=== PATIENT | male | born 1990 | race Caucasian/White ===

== ENCOUNTER 2025-02-27 09:54 | Outpatient (CLI) | payer BC, SELFPAY ==
[2025-02-27 14:31] LABS: Coronavirus 19, PCR Not Detected (NotDetected); Influenza A, PCR Not Detected (NotDetected); Influenza B, PCR Not Detected (NotDetected)
--- OUTSIDE RECORDS SUMMARY | 2025-02-28 14:19 | XMS_ITS | Data Portability ---
Author Organization [facility] ADMIN Address [address] [place] [id number] Assessment No assessment recorded. Plan of Treatment Reminders Order Date Submit Date Provider Last Modified By Organization Details Last Modified Time Details Appointments None recorde d. Lab influen za virus A + B + SARS-Co V-2 (COVID1 9) Ag panel, rapid IA, upper respira tory specime n 2022 023 [facility], [address] [place] [address] [address], [place], [address], 3 17:07:49 rapid strep group A, throat 2022 023 [facility], [address] [place] [address] [address], [place], [address], 3 17:13:08 semen analysi s (post vasecto my) 2022 023 [facility] Not available 3 10:13:52 urinaly sis, dipstic k 2022 023 [email or web address] [facility], [address], [address], [place], [address], 3 09:48:[address] referra l 2021 022 [email or web address] [facility], [address], [address], [place], [address], 3 19:06:10 Procedures None recorde d. Surgeries None recorde d. Imaging US, scrotum 2022 023 [facility] (Centralized Scheduling), [address], [place], [address], 3 08:56:24 Medication Orders prometh azine-D M 6.25 mg-15 mg/5 mL oral syrup 2022 023 [facility], [address], [place], [address], 3 16:27:36 prednis one 20 mg tablet 2022 023 [facility], [address], [place], [address], 3 16:27:37 Chantix Startin g Month Box 0.5 mg (11)-1 mg (42) tablets in dose pack 2021 023 [facility], [address], [place], [address], 3 16:01:00 Mobic 15 mg tablet [address] [facility] [address] [facility], [address], [place], [address], 3 16:00:45 Stratte ra 40 mg capsule [address] [facility], [address], [place], [address], 16:00:49 Patient TargetsNo targets recorded. Patient InstructionsNo instructions recorded. Reason for Referral Urologist Referral for Orchi tis and epididymitis Referring Physician: Moises Treviño, Family Medicine, Encounter Date: 04/08/2022 Results Created Date Observation Date Name Description Value Unit Range Abnormal Flag Note LastModifiedBy Organization Detail LastModifiedTime 06/18/1906/17/2022 urina lysis , dipst ick Leukocytes (reference range) negati ve Not Available [facility] [address] [place] [address], [place], [address], 06/17/2022 09:11:55 06/18/1906/17/2022 urina lysis , dipst ick Nitrite (reference range:) negati ve Not Available [address], [address], 06/17/2022 09:11:55 06/18/1906/17/2022 urina lysis , dipst ick Urobilinogen (reference range) 0.2 Not Available [facility] [address], [place], [address], 06/17/2022 09:11:55 06/18/1906/17/2022 urina lysis , dipst ick Protein (reference range) negati ve Not Available [address], [address], 06/17/2022 09:11:55 06/18/19 23 06/17/2022 urina lysis , dipst ick pH (reference range 5-8.5) 5.0 Not Available [facility] [address], [place], [address], 06/17/2022 09:11:55 06/18/19 23 06/17/2022 urina lysis , dipst ick Blood (reference range:) negati ve Not Available [facility] [address] [place] [address] [address], [place], [address], 06/17/2022 09:11:55 06/18/19 23 06/17/2022 urina lysis , dipst ick Specific Aiken (reference range) 1.015 Not Available [facility] [address] [place] [address] [address], [place], [address], 06/17/2022 09:11:55 06/18/19 23 06/17/2022 urina lysis , dipst ick Ketone (reference range) negati ve Not Available [address], [place], [address], 06/17/2022 09:11:55 06/18/1906/17/2022 urina lysis , dipst ick Bilirubin (reference range) negati ve Not Available [address], [place], [address], 06/17/2022 09:11:55 06/18/1906/17/2022 urina lysis , dipst ick Glucose (reference range) negati ve Not Available [address], [place], [address], 06/17/2022 09:11:55 06/18/1906/17/2022 urina lysis , dipst ick Color (reference range: yellow-brown ) Yellow Not Available [facility] [address] [place] [address] [address], [place], [address], 06/17/2022 09:11:55 07/28/19 23 07/27/2022 SEMEN YESSI SIS POST VAS semen analysis post vas PRES NONMOT ILE Not Available [facility] ([facility]) [address] [facility], [place], [address], 07/27/2022 10:13:52 12/16/19 23 12/15/2022 influ betty virus A + B + SARS- CoV-2 (COVI D19) Ag panel , rapid IA, upper respi rator y speci men FLU A negati ve Not Available [facility] - [address], [place], [address], 12/15/2022 16:09:13 12/16/19 23 12/15/2022 influ betty virus A + B + SARS- CoV-2 (COVI D19) Ag panel , rapid IA, upper respi rator y speci men FLU B negati ve Not Available [facility] - [address], [place], [address], 12/15/2022 16:09:13 12/16/19 23 12/15/2022 influ betty virus A + B + SARS- CoV-2 (COVI D19) Ag panel , rapid IA, upper respi rator y speci men SARS COV + SARS OV 2 positi ve Not Available [facility] - [address], [place], [address], 12/15/2022 16:09:13 12/16/19 23 12/15/2022 rapid strep group A, throa t Strep negati ve Not Available [facility] - [address], [place], [address], 12/15/2022 16:09:14 07/28/19 23 07/27/2022 scrot um testi cles [facility] [address] [place] [address] Phone: Fax: Name: Devin Xavier Exam Date: 023 : [birth year] Age 32 Gender : M Access ion: [id number] Physic phil: GLADYS BOYER Facili ty: [facility] Facili ty HSV: Outpat ient Exam: SCROTU M TESTIC LES US SCROTA L ULTRAS OUND HISTOR Y: Bilate ral testic ular pain since . PROCED URE: Sonogr aphic images of the testic les were perfor med. FINDIN GS: Testes have a homoge neous vangie ecture . No masses are seen. Normal flow is demons trated by Dopple r exam. There are small bilate ral hydroc eles. There is a 1.2 cm right epidid ymal cyst. CONCLU SIERRA: 1. No intrat esticu lar mass or eviden ce of torsio n. 2. Right epidid ymal cyst and small bilate ral hydroc eles The films were review ed, interp reted, and dictat ed by Dr. Jaime Kearns Transc ribed by Joanie Solares se, PA-C Dictat ed By: JAIME KEARNS Transc ribed By: Jaime Kearns Transc ribed On: 023 9:46 AM Electr onical ly signed by: JAIME KEARNS 023 [facility] Legall y authen ticate d by POPE JAIME Garibay 07-27 09:46: 15 CC'ed Logic: Orderi ng Provid er: ROSALIND Keith Attend ing Provid er: ROSALIND Keith Admitt ing Provid er: ROSALIND Keith [email or web address] [facility] [address] [facility] [facility], [place], [address], 07/27/2022 10:13:53 Result Notes None recorded. Problems Name Problem SNOMED Code Status Onset Date Resolution Date Notes Provider Name and Address Organization Details Recorded Time Epididymitis 54849629 Active 2022 HANS Lau [facility] [place] 3 10:59:54 Orchitis 659447038 Active 2022 HANS Lau [facility] 3 11:00:03 Problem Notes None recorded. Procedures Surgical History Date Name Laterality Status Provider Name and Address Organization Details Recorded Time vasectomy completed Diane MAXWELL - LP [facility] [place] 06/17/2022 08:53:54 Imaging Results None recorded. Procedure Notes None recorded. Medical Equipment None Reported. Allergies No known drug allergies Medications Name Sig Start Date Stop Date Status Note LastModified by Organization Details LastModified Time promethazin e-DM 6.25 mg-15 mg/5 mL oral syrup TAKE 5 ML BY MOUTH EVERY 4 HOURS NEEDED active Not Available Not Available No t Available meloxicam 15 mg tablet Take 1 tablet every day by oral route. 12/15 completed Not Available Not Available Not Available prednisone 20 mg tablet TAKE 3 TABS BY MOUTH DAILY FOR 3 DAYS, THEN TAKE 2 TABS DAILY FOR 3 DAYS, THEN TAKE 1 TAB DAILY FOR 3 DAYS active Not Available Not Available No t Available doxycycline monohydrate 100 mg capsule TAKE 1 CAPSULE BY MOUTH TWICE DAILY FOR 14 DAYS active Not Available Not Available No t Available atomoxetine 40 mg capsule Take 1 capsule every day by oral route. 12/15 completed Not Available Not Available Not Available Chantix Starting Month Box 0.5 mg (11)-1 mg (42) tablets in dose pack Take 1 startr pk by oral route as directed. 12/15 completed Not Available Not Available Not Available BinaxNOW COVID-19 Ag Self Test kit Use as Directed on the Package 04/08 completed Not Available Not Available Not Available Vitals Date Recorded Body height Body mass index (BMI) Body weight Body temperature Systolic And Diastolic Provider Name and Address Organization Details Last Updated DateTime 06/17/2022 175.26 cm 23.2 kg/m2 19816 g 98 [degF] 140/68 mm[Hg] Diane Gayle MAXWELL - LPNT [facility] [place] 3 09:15:34 Date Recorded Body height Body mass index (BMI) Body weight Body temperature Oxygen saturation Oxygen saturation in Arterial blood by Pulse oximetry Heart rate Systolic And Diastolic Provider Name and Address Organization Details Last Updated DateTime 3 175.26 cm 25.1 kg/m2 86786.7 g 97.5 [degF] 98 % 98 % 82 /min 140/100 mm[Hg] Estefania Couch [facility] [place] 3 16:00:12 Date Recorded Body weight Body temperature Body mass index (BMI) Body height Oxygen saturation Oxygen saturation in Arterial blood by Pulse oximetry Heart rate Systolic And Diastolic Provider Name and Address Organization Details Last Updated DateTime 2 88660.1 1 g 97.3 [degF] 25 kg/m2 175.26 cm 99 % 99 % 90 /min 150/90 mm[Hg] Sandee Hernandez [facility] [place] 2 14:50:27 Social History Question Answer Notes LastModified by Organizat ion Details LastModified Time Tobacco Smoking Status Current Every Day Smoker Diane rodas [facility] [place] 06/17/2022 08:54:18 How Much Tobacco Do You Smoke? 1 PPD Information not available 06/17/2022 Sex: Unknown Functional Status Question Answer Note LastModified by [employer] Details LastModified Time Do you use any illicit or recreational drugs? No Information not available 06/17/2022 What is your level of alcohol consumption? None Information not available 06/17/2022 Mental Status None recorded. Family History Nothing Reported. Medical History No medical history recorded. 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 F90.0 Nicotine dependence 5629 4008 F17.200 [id number] Paradise Boyer NP, [facility] [address] [place] [address] 06/17/2022 08:47:13 06/17/2022 09:41:27 Pain in scrotum N50.82 UA clearPE normal.Dis cussed supportive underwearS chedule scrotal ultrasound Pt would also like like semen analysis done as this was not performed after his vasectomyR TC in 4 weeks to go over Scrotal US results History of vasectomy 161 675989 Z98.52 [id number] Moises Treviño MD [facility] [address] [place] [address] 12/15/2022 15:36:08 12/15/2022 16:31:57 Pain in throat 412409500 R07.0 COVID-19 655280612 U07.1 Health Concerns Section Related Observation LastModified by Organization Detai ls LastModified Time None Recorded Concern Status LastModified by Organization Details LastModified Time None Recorded Advance Directives Directive None Recorded Payers Insurance Date Sequence Insurance Name Policy Number Policy Vega Covered Member ID Vega Member ID Guarantor Name 12/16/2022 1 [place] [id number] A Devin Lopez [id number] Devin Lopez 08/02/2020 1 *SELF PAY* Nata Lopez Notes Date Note Type Note Provider Name and Address Organization Details Recorded Time 04/08/2022 text/html he is here for few different problems. He had a vasectomy a few months ago and he continues to have intermittent pain in his testicle. Describes as a nerve type pain. No swelling in this area reported. Now reports difficulty with hyper activity and hyper diligence. He reports he is difficulty concentrating on most duties of his job become focused on unimportant things like cleaning. He is having some trouble at work because of this. Wondering about ADHD type symptoms. He is vaping and like to stop. He is asking for chantix. Moises Treviño MD [address], [place], [address], [facility] [place] [facility] [place] 04/08/2022 16:53:23 06/17/2022 text/html 32 yowm presents to clinic for evaluation of scrotal pain. Patient reports he started experiencing left scrotal pain in March 2022. Patient reports the pain is dull and intermittent in nature. At worst the pain is 5/10 and currently pain is 2/10. Patient reports prior to March he did have some right scrotal discomfort however this dissipated on its own. Reports the pain is non-radiating. There are no precipitating factors. Pain is better with rest and after having a bowel movement. Patient had a vasectomy performed in January [address] Ortiz. States had no complications after the procedure. reports he does not experienced any scrotal swelling, redness, or any discharge. He denies any fever, chills, nausea or vomiting. Reports urinary stream is good. He denies any dysuria or gross hematuria. Denies any history of UTIs or kidney stones. Paradise Boyer, CYNDY, [address], [place], [address], [facility] - [facility] [place] 06/17/2022 09:40:30 12/15/2022 text/html he is here for sore throat and sinus congestion. Some loss of taste and smell. Everyone in his family is sick. He is tested positive for COVID here in the office. Moises Treviño MD [address], [place], [address], [facility] - [facility] [place] 12/15/2022 17:06:17
--- OUTSIDE RECORDS SUMMARY | 2025-02-28 14:19 | XMS_ITS | Clinical Summary ---
Author Organization [facility] Address [address] [place] [address] Phone [email or web address] Care Team Providers Care Diagnostic Assistant Name Role Phone Moises Treviño Primary Care Provider [phone] Allergies Active Allergy Reactions Criticality Noted Date Comments Bee Venom Anaphylaxis High 01/19/2019 Nickel 11/20/2019 Contact dermitits / IBS Other 11/20/2019 Propalenglycal - IBS Medications No known medications Active Problems Problem Noted Date Diagnosed Date Impaired skin integrity 09/14/2023 Encounter for fitness for duty examination 09/19 Social History Tobacco Use Types Packs/Day Years Used Date Smoking Tobacco: Some Days Smokeless Tobacco: Current Intimate Partner Violence Answer Date R ecorded Insults You Not on file 07/30/2020 Threatens You Not on file 07/30/2020 Screams at You Not on file 07/30/2020 Physically Hurt Not on file 07/30/2020 Intimate Partner Violence Score Not on file 07/30/2020 Depression Answer Date Recorded PHQ Total Score 0 09/10/2023 Stress Answer Date Recorded Stress in your Life Not on file 02/21/2024 Dealing with Stress 3 02/21/2024 Sex and Gender Information Value Date Recorded Sex Assigned at Not on file Legal Sex Male 9:27 AM CDT Gender Identity Not on file Sexual Orientation Not on file Last Filed Vital Signs Vital Sign Reading Time Taken Comments Blood Pressure 118/71 09/14/2023 4:22 PM EDT Pulse 80 09/14/2023 4:22 PM EDT Temperature 36.4 C (97.5 F) 09/10/2023 4:09 PM EDT Respiratory Rate 18 09/14/2023 4:22 PM EDT Oxygen Saturation 99% 09/14/2023 4:22 PM EDT Inhaled Oxygen Concentration - - Weight 89.6 kg (197 lb 9.6 oz) 04/03/2020 1:43 P M EST Height 178.3 cm (5' 10.18 ) 04/03/2020 1:[address] Body Mass Index 28.21 04/03/2020 1:43 PM EST Plan of Treatment Health Maintenance Due Date Last Done Comments Dental Cleaning/Exam 1990 HIV Screening 1990 Hepatitis C Screening 1990 Asthma Spirometry 1995 HPV Immunization (1 - Male 3 -dose series) 2005 Annual Preventive Exam 2008 Hep B Infection Screening - Triple Screen 2008 Hepatitis B Immunization (1 of 3 - 19+ 3-dose series) 2009 Pneumococcal Immunization (1 of 2 - PCV) 2009 Covid-19 Immunization (1 - 2 season) 2024 Influenza Immunization (#1) 2024 Tetanus Diphtheria and Pertu ssis Immunization (2 - Td or Tdap) 06/15/2028 06/15/2018 HIB Immunization Aged Out No longer e ligible based on patient's age to complete this topic Hepatitis A Immunization Aged Out No longer eligible based on patient's age to complete this topic Polio Immunization Aged Out No longer eligible based on patient's age to complete this topic Varicella Immunization Aged Out No lo nger eligible based on patient's age to complete this topic Insurance ABHI[employer] IN [place] 5 Care Teams Diagnostic Assistant Relationship Specialty Start Date End Date Moises Treviño [address] [place] [address] PCP - General Family Medicine 01/19/19
== END 2025-02-27 23:59 | disposition home or self-care (01) ==
LOC: LAB.DROPOF 02-28 14:02
PROVIDERS: PCP Family Medicine; Visit Provider Student in an Organized Health Care Education/Training Program
DX: J06.9 Acute upper respiratory infection, unspecified (principal); J02.9 Acute pharyngitis, unspecified
CPT/HCPCS: 87070; 87631